=== PATIENT | male | born 1980 | race Two or more races ===

== ENCOUNTER 2025-03-11 08:10 | Emergency (ER) | payer MEDICAID, SELFPAY ==
[2025-03-11 08:13] VITALS: BMI 31.3
--- NOTE | 2025-03-11 08:26 | PD.EDUPEX ---
Upper Extremity Injury RME/HPI General Chief Complaint: Extremity Injury, Upper Stated Complaint: L) ARM PAIN X 2 DAYS Time Seen by Provider: 03/11/25 08:34 Arrival date/time: 03/11/25 08:10 RME / HPI RME / HPI narrative: 44 year old male presents to the ED for evaluation of left shoulder pain beginning 2 days ago after lifting heavy boxes at work. Described as throbbing in sensation, rating as moderate-severe. States he took an Ibuprofen with mild improvement and went to work yesterday. However, while at work lifting heavy he noted the pain worsened. Denies any trauma or falls. Related Data Previous Rx's ?Medication ?Instructions ?Recorded camphor-menthol 230 mg-70 mg 1 patch topical BID PRN pain #12 ea 03/11/25 topical patch ([place]) ketorolac 10 mg tablet 10 mg PO Q8H PRN pain #20 tabs 03/11/25 Allergies Allergy/AdvReac Type Severity Reaction Status Date / Time No Known Allergies Allergy Verified 03/11/25 08:16 Review of Systems Review of Systems Systems Reviewed: All systems reviewed, normal except as documented Past Medical History Social History SMOKING STATUS: Never smoker ED Exam Narrative Physical exam: Constitutional: Awake, alert, nontoxic, appears mildly uncomfortable on exam. HEENT: NC, AT, EOMI Neck: Supple Extremities: No deformities, there is pain to palpation of left shoulder/trapezius region. No deformities noted. Distal sensation and range of motion intact. Decreased range of motion in general, active > passive. Neuro: AAOx3, no acute neuro deficits Skin: Warm, dry, intact Course Quality Measures none Orders Category Date Time Status Ketorolac Inj [Toradol Inj] Med 03/11/25 08:34 Discontinued 60 mg IM X1 ONE Vital Signs Vital signs: Vital Signs Temperature 98 F 03/11/25 08:44 Pulse Rate 68 03/11/25 08:44 Respiratory Rate 18 03/11/25 08:44 Blood Pressure 158/96 H 03/11/25 08:44 Pulse Oximetry (%) 98 03/11/25 08:44 Oxygen Delivery Method Room Air 03/11/25 08:44 Pulse ox is 98% on room air which is adequate. Extremity Injury MDM Narrative MDM Narrative:: Charlette Brown am scribing for and in the presence of Dr. Dixon. Patient data External records reviewed:: None Clinical information provided by:: patient Social determinants that could affect healthcare access:: none Patient has the following chronic illnesses:: None reported How is presenting disease/condition affected by chronic disease/condition?: no chronic disease Evaluation data The following diagnostics were reviewed and interpreted by me:: other (specify) (No diagnostics ordered) Lab and/or radiology exams considered but not ordered:: None Interpretation Summary: N/A Medications / Prescriptions Medications or Prescriptions considered but not ordered:: None Medication administrations:: Medication Administration History Discontinued Medications Ketorolac Tromethamine (Ketorolac Inj 60 Mg/2 Ml Vial) 60 mg IM X1 ONE Stop: 03/11/25 08:35 Last Admin: 03/11/25 08:44 Dose: 60 mg Documented By: LP See above Consultations Consultation(s) initiated? (list below): No Diagnosis Upper Extremity Injury Differential Diagnosis: dislocation of shoulder and other (shoulder pain, musculoskeletal pain ) Most likely diagnosis given after review of the tests above:: Shoulder sprain Admission Indicated Admission indicated?: not indicated Admission Request Was there a request for admission?: No Disposition Plan Disposition Plan: Discharge Discharge Attestation Discharge Attestation: The patient and all family members were given an opportunity to ask questions and understood the discharge instructions. Discharge instructions specifically effects, indications for sooner follow up or return to the emergency department, and the expected course of current diagnosis. Patient condition: Stable Discharge Plan Plan Patient Disposition: HOME (Self Care) Patient condition on transfer: Stable Prescriptions/Referrals Prescriptions/Med Rec: New ketorolac 10 mg tablet 10 mg PO Q8H PRN (Reason: pain) Qty: 20 0RF Rx Instructions: maximum total duration of 5 days from all oral, intranasal, or parenteral formulations [place] 230-70 mg adhesive patch,medicated 1 patch topical BID PRN (Reason: pain) Qty: 12 0RF Problem List Clinical Impression: Shoulder sprain Patient/Caregiver Discharge Instructions Other Activity Instructions:: Avoid lifting greater than 5 to 10 pounds with left arm for the next 10 to 14 days. Education Materials: Treating?Strains and Sprains, Self-Care for Strains and Sprains, ED Shoulder Sprain Additional Instructions: May apply [place] balm or Salonpas with lidocaine cream or patches to the affected area as needed. Print Language: Ukrainian Stand Alone Forms: Lucy Award Info., Work/School Release, Patient Portal Info Letter
[2025-03-11 08:44] VITALS: BP 158/96; PULSE 68; RESP 18; TEMP 36.6; O2SAT 98
[2025-03-11] MEDS: KETOROLAC INJ 60 MG/2 ML VIAL IM (08:44)
== END 2025-03-11 09:19 | disposition home or self-care (01) ==
LOC: SERX 09:14
PROVIDERS: Emergency Provider Family Medicine
DX: S43.402A Unspecified sprain of left shoulder joint, initial encounter (principal); X50.0XXA Overexertion from strenuous movement or load, initial encounter; Y99.0 Civilian activity done for income or pay
CPT/HCPCS: 96372; 99283; J1885